=== PATIENT | female | born 1985 | race Hispanic/Latino ===

== ENCOUNTER 2023-06-14 17:23 | Emergency (ER) | payer BC ==
[~2023-06-14] VITALS: Ht 162.6 cm; Wt 86.2 kg
[2023-06-14 18:25] LABS: BASOPHILS # (AUTO) 0.07 K/uL (0.00-0.20); BASOPHILS % (AUTO) 0.5 % (0.0-5.0); EOSINOPHILS # (AUTO) 0.37 K/uL (0.00-0.70); EOSINOPHILS % (AUTO) 2.8 % (0.0-8.0); HEMATOCRIT 41.9 % (36-48); IMMATURE GRANULOCYTE ABSOLUTE 0.03 K/uL (0-1); LYMPHOCYTES # (AUTO) 2.4 K/uL (1.0-4.8); LYMPHOCYTES % (AUTO) 17.9 % (21.0-51.0); MEAN CORPUSCULAR HEMOGLOBIN 32.8 pg (27.0-33.0); MEAN CORPUSCULAR HGB CONC 35.3 g/dL (32.0-36.0); MEAN CORPUSCULAR VOLUME 92.9 fL (79-99); MONOCYTES # (AUTO) 0.8 K/uL (0.1-1.0); MONOCYTES % (AUTO) 5.9 % (3.0-13.0); NEUTROPHILS # (AUTO) 9.6 K/uL (1.8-7.7); NEUTROPHILS % (AUTO) 72.7 % (40.0-77.0); PLATELET COUNT (AUTO) 179 K/uL (130-400); RED BLOOD CELL COUNT(AUTO) 4.51 MIL/uL (4.00-5.50); RED CELL DISTRIBUTION WIDTH 12.5 % (11.0-15.5); WHITE BLOOD COUNT (AUTO) 13.2 K/uL (4.8-10.8)
[2023-06-14 18:41] LABS: INR <= 0.93 (0.85-1.15); PROTHROMBIN TIME 10.9 SEC (9.6-11.6)
[2023-06-14] MEDS: KETOROLAC 30MG VIAL (30MG/ML) IV ONE (18:48)
[2023-06-14] MEDS: TETANUS/DIPHTHERIA TOXOID [ADULT] 0.5 ML VIAL IM ONE (18:50)
[2023-06-14] MEDS: CEFAZOLIN SODIUM 1 GM VIAL IVPB PRN (18:50)
[2023-06-14 18:53] LABS: BILIRUBIN,TOTAL 0.8 mg/dL (0.2-1.0); POTASSIUM 3.1 mmol/L (3.5-5.1)
[2023-06-14] MEDS: CEFAZOLIN SODIUM 2 GM VIAL IVPB SCH (20:05)
[2023-06-14] MEDS ORDERED: IBUP-1493 PO (20:13)
[2023-06-14] MEDS ORDERED: CEPH500B PO (20:13)
[2023-06-14] MEDS: BACITRACIN 1 EACH PACKET TP ONE (20:16)
[2023-06-14] MEDS: LIDOCAINE HCL 1% 20 ML VIAL ONE (20:16)
[2023-06-14] MEDS: MORPHINE 2 MG SYG IVP SCH (20:30)
[2023-06-14] MEDS ORDERED: IOHEXOL 350 MG/ML 100ML INFUS..BTL IV ONE (20:51)
[2023-06-14 22:45] VITALS: BP 102/62; PULSE 64; RESP 16; O2SAT 100
== END 2023-06-14 22:58 | disposition home or self-care (01) ==
LOC: EDH 17:23
DX: S81.012A Laceration without foreign body, left knee, initial encounter (principal); S01.112A Laceration without foreign body of left eyelid and periocular area, initial encounter; Z79.899 Other long term (current) drug therapy; D69.6 Thrombocytopenia, unspecified; R10.2 Pelvic and perineal pain; X58.XXXA Exposure to other specified factors, initial encounter; Y93.89 Activity, other specified; Y92.89 Other specified places as the place of occurrence of the external cause; Y99.8 Other external cause status
CPT/HCPCS: 99285; 70450; 96365; 71045; 96375; 80053; 84702; 85025; 85610; 36415; 90714; 73560; 72170; 72125; 71260; 73700; 70486; 74177; 90471; 12004; 12014; J0690; J1885; Q9967

== ENCOUNTER 2023-06-22 14:56 | Emergency (ER) | payer BC ==
[~2023-06-22] VITALS: Ht 162.6 cm; Wt 86.2 kg
[~2023-06-22 14:56] MED LIST: CEPH500B PO; IBUP-1493 PO
[2023-06-22 19:27] VITALS: BP 115/62; PULSE 72; RESP 17; O2SAT 98
== END 2023-06-22 19:32 | disposition home or self-care (01) ==
LOC: EDH 14:56
DX: S01.112D Laceration without foreign body of left eyelid and periocular area, subsequent encounter (principal); S01.412D Laceration without foreign body of left cheek and temporomandibular area, subsequent encounter; S01.81XD Laceration without foreign body of other part of head, subsequent encounter; Z48.02 Encounter for removal of sutures; X58.XXXD Exposure to other specified factors, subsequent encounter

== ENCOUNTER 2023-06-30 01:35 | Emergency (ER) | payer BC ==
[~2023-06-30] VITALS: Ht 162.6 cm; Wt 86.2 kg
[2023-06-30 02:07] VITALS: BP 142/65; PULSE 74; RESP 18; O2SAT 100
== END 2023-06-30 02:09 | disposition home or self-care (01) ==
LOC: EDH 01:35
DX: S81.012D Laceration without foreign body, left knee, subsequent encounter (principal); Z79.899 Other long term (current) drug therapy; X58.XXXD Exposure to other specified factors, subsequent encounter
CPT/HCPCS: 99281